=== PATIENT | male | born 1995 ===

== ENCOUNTER → 2017-12-08 | Outpatient (CLI) | payer OTHER ==
--- NOTE | 2017-12-08 15:39 | DIAGNOSTIC IMAGING REPORT ---
THORACIC SPINE 3-VIEWS CLINICAL HISTORY: Thoracic spine pain. No recent trauma. Remote history of trauma. COMPARISON STUDY: No previous studies for comparison. FINDINGS: Alignment of the thoracic spine is anatomic. No fracture or suspicious lesion is present. Disc spaces are preserved. IMPRESSION: Unremarkable thoracic spine radiographs. Electronically signed by: Rambo Molina M.D. 12/08/2017 3:38 PM Dictated Date/Time: 12/08/2017 3:37 PM
== END | disposition home or self-care (01) ==
LOC: C.RDSM 14:31
PROVIDERS: ATTEND Family Medicine
DX: M54.6 Pain in thoracic spine (principal)